=== PATIENT | female | born 1985 | race Caucasian/White ===

== ENCOUNTER 2016-11-09 03:44 | Emergency (ER) | payer BC ==
--- NOTE | 2016-11-09 07:04 | ED ORDER SUMMARY ---
..... Patient: GRAHAM ANDERSEN OrderSheet [facility] VisitID: [id number] [address] [place] [address] 30y, F Registration Date/Time: 11/09/2016 ORDER SHEET Weight: 117.4 kg (stated) Allergies: Amoxicillin GENERAL ORDERS: Serum Quantitative Urgent (03:56 11/09/2016 PHutchinson DO) (Ack 4:09 HSoule) (4:49 RCollier R.N.) CBC w Diff Urgent (03:57 11/09/2016 PHutchinson DO) (Ack 4:09 HSoule) (4:49 RCollier R.N.) CMP Urgent (03:57 11/09/2016 PHutchinson DO) (Ack 4:09 HSoule) (4:49 RCollier R.N.) UA-Culture if indicated Urgent (03:57 11/09/2016 PHutchinson DO) (Ack 4:13 CHategekimana) (5:03 HSoule) PT with INR Urgent (03:57 11/09/2016 PHutchinson DO) (Ack 4:09 HSoule) (4:49 RCollier R.N.) CT Abd/Pel w Cont (Yes) (BUN and Cr normal) (recent ectopic pregnnancy -- BHCG now 5) Urgent (04:39 11/09/2016 PHutchinson DO) (Ack 4:46 CHategekimana) (4:58 PHutchinson DO) (Cancelled: Other4:58 PHutchinson DO) US Pelvic Complete w Transvag (recent ectopic preg) Urgent (04:59 11/09/2016 PHutchinson DO) (Ack 5:05 LMuller) (6:55 RCollier R.N.) Type & Rh Urgent (05:17 11/09/2016 PHutchinson DO) (Ack 5:19 CHategekimana) (5:43 HSoule) MEDICATION ORDERS: IV FLUIDS: IV NS : initial bolus 1000 mL (1000 mL/hr), then 500 mL/hr for X2 (NOW) (03:56 11/09/2016 PHutchinson DO) (Ack 3:58 HSoule) (4:09 HSoule) Zofran IV 4 mg (NOW) (03:57 11/09/2016 Courtney VÁZQUEZ) (Ack 3:58 HSoule) (4:09 HSoule) ORDER SHEET NOTES: [Electronically signed by Jenifer George (07:11 11/09/2016)] [Electronically signed by Didier Sprague DO (09:14 11/09/2016)] [Electronically locked/signed by Jenifer George (07:11 11/09/2016)]
--- NOTE | 2016-11-09 07:04 | ED CLINICAL REPORT ---
Clinical Report - Physicians/Mid Levels [facility] [address] [place] [address] 11/09/2016 3:45 Patient: GRAHAM ANDERSEN Time Seen: 03:53. Arrived- By private vehicle. Historian- patient and family. HISTORY OF PRESENT ILLNESS Chief Complaint: PELVIC PAIN. This started today first noted about 1 week ago, but worsened tonight and still present. It was gradual in onset and has been waxing/waning. The symptoms are described as moderate. Modifying factors- worsened by movement. Relieved by rest. The patient has had left-sided pelvic pain and abnormal bleeding. No vaginal discharge, pain with urination, urinary frequency or urgency of urination. Last normal menstrual period- Aug 2016. Does not use control measures. (Patient was seen here for ectopic on the and given methotrexate. Patient went to follow up appointment with Dr. Mccord and was told she should be fine. She states that she is having pain that started tonight and some bleeding). Currently : recent ectopic preg - post methotrexate. Similar symptoms previously: Recent medical care: The patient was seen recently at this facility in the emergency department. Diagnosis: ectopic . REVIEW OF SYSTEMS No vomiting, diarrhea, fever, sore throat or difficulty breathing. No skin rash. All systems otherwise negative, except as recorded above. 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 SURGERIES: Eye surgery . Leap procedure). Type II diabetes mellitus treated with oral med. Medications: Hydrocodone-Acetaminophen Oral. MetFORMIN HCl Oral (Tablet 1000 mg) 1 tablet, 2x a day. Allergies: Amoxicillin. SOCIAL HISTORY Former smoker. Occasional alcohol use. No drug use. Is a local resident. ADDITIONAL NOTES The nursing notes have been reviewed. PHYSICAL EXAM Vital Signs: 11/09/2016 03:52 BP: 144/91. HR: 79. RR: 18. O2 saturation: 99%. Temp: 97.9 F. Pain level now: 3/10. Appearance: Alert. Oriented X3. Patient in mild distress. HEENT: Normal external inspection. Eyes: No scleral icterus or pale conjunctivae. ENT: No hearing deficit. Neck: Neck supple. CVS: Heart sounds normal. Respiratory: No respiratory distress. Breath sounds normal. Abdomen: Soft. Mild tenderness in the left lower quadrant. No mass. No rebound tenderness or guarding. Back: Normal external inspection. Skin: Skin warm and dry. Normal skin color. No rash. Normal skin turgor. Extremities: Extremities nontender. No lower extremity edema. Neuro: Oriented X 3. No motor deficit. LABS, X-RAYS, AND EKG Pelvic Sonogram: Left adnexal mass; no free fluid. The study was independently viewed by me, interpreted by the radiologist and discussed with the radiologist. A comparison with prior studies reveals that the findings are improved (fluid is now decreased; mass is similar in appearance). Laboratory Tests: UA-Culture if indicated: (XENIA: 11/09/2016 04:55) ( MsgRcvd 11/09/2016 05:10) Final results Test Result Flag Units (Reference) URINE COLOR YELLOW URINE APPEARANCE SLIGHTLY HAZY URINE GLUCOSE NEGATIVE (NEGATIVE) URINE BILIRUBIN NEGATIVE (NEGATIVE) URINE KETONE NEGATIVE (NEGATIVE) URINE SPECIFIC GRAVITY >= 1.030 (1.010-1.030) URINE PH 5.5 (5.0-8.0) URINE PROTEIN NEGATIVE (NEGATIVE) URINE UROBILINOGEN 0.2 EU/dL (0.2-1.0) URINE NITRITE NEGATIVE (NEGATIVE) URINE BLOOD 3+ (NEGATIVE) URINE LEUK ESTERASE NEGATIVE (NEGATIVE) URINE RBC 1-3 rbc/hpf (0-1) URINE WBC 0-1 wbc/hpf (0-1) URINE EPITHELIAL CELLS 1-3 EPI/hpf (0-5) URINE BACTERIA TRACE (<1+) (NONE SEEN) URINE COMMENT CULT NOT INDICATED CALCIUM OXALATE CRYSTALS: 15-25/HPFURINE CULTURES ARE SET-UP BASED ON THE FOLLOWING CRITERIA:POSITIVE NITRITEPOSITIVE LEUKOCYTE ESTERASEGREATER THAN 10 WHITE BLOOD CELLSMODERATE (2+) OR GREATER BACTERIA CBC w Diff: (XENIA: 11/09/2016 04:00) ( MsgRcvd 11/09/2016 04:16) Final results Test Result Flag Units (Reference) WHITE BLOOD COUNT 13.3 H K/uL (4.5-11.5) RED BLOOD COUNT 4.72 M/uL (4.00-5.20) HEMOGLOBIN 14.3 gm/dL (12.0-16.0) HEMATOCRIT 43.2 % (36.0-46.0) MEAN CELL VOLUME 91 fL (80-100) MEAN CORPUSCULAR HGB 30 pg (26-34) MEAN CORPUSCULAR HGB CONC 33 g/dL (31-37) RED CELL DISTRIBUTION WIDTH 13.3 % (11.6-14.8) PLATELET COUNT 258 K/uL (150-400) NEUTROPHIL % 67.1 % (50-75) LYMPH % 26.6 % (25-40) MONO % 5.6 % (3-14) EOSINOPHIL % 0.5 % (0-4) BASOPHIL % 0.2 % (0-2) PT with INR: (XENIA: 11/09/2016 04:00) ( MsgRcvd 11/09/2016 04:19) Final results Test Result Flag Units (Reference) INR 1.0 (0.8-1.2) Low Intensity Therapy: INR 1.5-2.0 PT range 18.5-23.1Mod.Intensity Therapy: INR 2.0-3.0 PT range 23.1-31.5High Intensity Therapy: INR 2.5-3.5 PT range 27.4-35.5High Intensity Therapy 2: INR 3.0-4.0 PT range 31.5-39.3 CMP: (XENIA: 11/09/2016 04:00) ( MsgRcvd 11/09/2016 04:38) Final results Test Result Flag Units (Reference) GLUCOSE 114 H mg/dL (70-110) BUN 8 mg/dL (7-18) CREATININE 0.7 mg/dL (0.6-1.3) Estimated GFR >60 mL/min Estimated GFR- >60 mL/min Note: Persistent reduction over 3 months in eGFR<60 mL/min/1.73 m2 defines CKD. Patients with eGFR values>=60 mL/min/1.73 m2 may also have CKD if evidence ofpersistent proteinuria. Additional information may be foundat [email or web address].org. SODIUM 142 mmol/L (136-145) POTASSIUM 3.4 L mmol/L (3.5-5.1) CHLORIDE 105 mmol/L (98-107) CARBON DIOXIDE 25 mmol/L (21-32) CALCIUM 9.4 mg/dL (8.5-10.1) TOTAL PROTEIN 7.7 g/dL (6.4-8.2) ALBUMIN 3.8 g/dL (3.3-5.0) BILIRUBIN, TOTAL 0.4 mg/dL (0.0-1.0) ALKALINE PHOSPHATASE 86 U/L (46-116) AST (SGOT) 17 U/L (15-37) ALT (SGPT) 28 U/L (12-78) BETA HCG, QUANTITATIVE 5 mIU/mL REFERENCE RANGE:Adult Males: <2 mIU/mLNon- Females: <6 mIU/mL Females:Approximate Approximate hCGGestational Age Range (mIU/mL) 0-1 week 0-501-2 weeks 40-3002-3 weeks 100-57930-2 weeks 500-55621-4 months 5,000-200,0002-3 months 10,000-100,0002nd trimester 3,000-50,0003rd trimester 1,000-50,000 Type & Rh: (XENIA: 11/09/2016 04:00) ( MsgRcvd 11/09/2016 05:42) Final results Test Result Flag Units (Reference) PATIENT BLOOD TYPE O Positive . Pulse Oximetry: 11/09/2016 03:52 O2 saturation: 99%. (FIO2 - room air). Interpretation: normal. PROGRESS AND PROCEDURES Course of Care: Normal Saline 1 liter IVPB given. Zofran 4 mg IVP given. Likely resolving ectopic vs corpus leuteum cyst. BHCG now in the negative range of 5. Dr. Mccord will follow pt closely. Discussed case with health care provider (Flex call returned 08:00). Reviewed test results. Agreed upon treatment plan. Health care provider will see patient in office. Patient/family counseled. Old ED records reviewed. Disposition: Discharged. Condition: stable and improved. CLINICAL IMPRESSION Metrorrhagia. Chronic, well controlled type 2 diabetes. No hypoglycemia, hyperglycemia or coma. Morbid obesity (BMI >=40) due to excess calories. Recent ectopic with quantitative Beta HCG now 5 mIU/mL. INSTRUCTIONS Do not work for two days. Drink plenty of fluids. Warnings: Further evaluation is necessary. It is very important to follow up with a physician. GENERAL WARNINGS: Return or contact your physician immediately if your condition worsens or changes unexpectedly, if not improving as expected, or if other problems arise. Your Current Medications: CONTINUE TAKING THE FOLLOWING MEDICATIONS: Hydrocodone-Acetaminophen Oral. MetFORMIN HCl Oral : Tablet 1000 mg, 1 tablet 2x a day. OTC Medications: Take acetaminophen (Tylenol, Datril, etc.) according to label instructions. Available over the counter. Motrin (available over the counter): take according to label instructions. Follow-up: Follow up with your doctor tomorrow. Follow-up with: Luis Felipe Mccord MD, Obstetrics/Gynecology, , [facility], [address] [place] [address], [facility] Follow up tomorrow. (Electronically signed by Didier Sprague DO 11/09/2016 9:14)
--- NOTE | 2016-11-09 07:04 | ED NURSING NOTES ---
Clinical Report - Nurses [facility] [place] [address] 11/09/2016 3:45 Patient: [facility]HAM [facility]ERSEN [id number] TRIAGE Triage time 03:52 Nov 09 2016. Acuity: LEVEL 3. Chief Complaint: ABDOMINAL PAIN and VAGINAL BLEEDING and (Left Lower Quadrant). SEPSIS SCREEN: Sepsis Screen: negative. Negative (no infection suspected/documented). ADAM COMA SCORE: Adam Coma Scale: 15- eyes open spontaneously (4); best verbal response- oriented x 4 (5); best motor response- obeys commands (6). --03:56 Jenifer George 03:52 11/09/16. BP: 144/91. HR: 79. RR: 18. O2 saturation: 99% on room air. Temp: 97.9 F (oral). Pain level now: 01/14. --03:56 Jenifer George. Weight: 117.4 kg stated. Height/Length: 67 inches Per Patient. BMI: 40.6. --03:54 Jenifer George. Medications MetFORMIN HCl Oral (Tablet 1000 mg) 1 tablet, 2x a day. --03:54 Jenifer George Hydrocodone-Acetaminophen Oral. --03:54 Jenifer George. Medication/allergy information source: the patient. --03:56 Jenifer George. Allergies Amoxicillin. --03:54 Jenifer George. History Arrived by private vehicle. Historian: patient. Accompanied by family. Primary physician (Looking for new doctor). This started just prior to arrival. ( Patient was seen here for ectopic on the . Patient went to follow up appointment with Dr. Mccord and was told she should be fine. She states that she is having pain that started tonight and some bleeding.). 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 PAST MEDICAL HX: Diabetes mellitus. Immunizations: up-to-date. Last normal menstrual period- Aug. SOCIAL HX: Smoker- current status unknown. No alcohol use or drug use. ABUSE ASSESSMENT: No report of abuse. FALL RISK ASSESSMENT: Fall risk assessment completed. No fall risk identified. NUTRITIONAL RISK ASSESSMENT: The nutritional risk assessment revealed no deficiencies. FUNCTIONAL ASSESSMENT: Functional assessment: no impairments noted. LEARNING NEEDS ASSESSMENT: The learning needs assessment revealed no barriers. SKIN INTEGRITY ASSESSMENT: Skin integrity risk assessment completed. No skin integrity risk identified. --03:56 Jenifer George. PROBLEMS: Ectopic . . --03:55 Jenifer George. ADDITIONAL SURGERIES: . Eye surgery . Leap procedure . --03:55 Jenifer George. Interventions ID band on patient. To treatment room. --03:56 Jenifer George. PHYSICAL ASSESSMENT Ambulatory to room. Patient gowned. GENERAL / NEURO / PSYCH: Alert. Oriented X 4. Appears in no acute distress. HEENT: Mucous membranes are pink. RESPIRATORY: Respirations not labored. CVS: Normal heart rate and rhythm. GI / : Abdomen soft. Abdominal tenderness in the left lower quadrant. SKIN: Skin is warm and dry. --03:57 Jenifer George. NURSING PROGRESS NOTES Pulse oximeter and NIBP monitor placed on patient; monitor alarms on. Patient gowned. Warming measures: blanket applied. Reassurance given to the patient. Two patient identifiers checked. Call light placed in reach. Side rails up x 1. Bed placed in lowest position. Brakes of bed on. Patient ready for evaluation- chart flagged and ED physician notified. --03:57 Jenifer George 03:58 11/09/2016 Site #1 started via IV in the left antecubital space with an 20g angiocath, with aseptic technique and good blood return; one attempt. Blood drawn: rainbow set. Labeled in the presence of the patient and sent to the lab. Saline lock flushed with 10 mL saline. --03:58 Jenifer George 04:09 11/09/2016 Started bag #1 1000 mL IV Fluids IV NS (Saline); at 1000 mL/hr over 1 hour(s) via site #1. Allergies verified and confirmed 5 rights. IV patency established. IV site checked: no pain, redness, or swelling. IV flushed thoroughly pre- and post-medication administration. --04:09 Jenifer George 04:09 11/09/2016 Zofran (Ondansetron HCl) IVP 4 mg given over 1 minute(s) via site #1. Allergies verified and confirmed 5 rights. IV patency established. IV site checked: no pain, redness, or swelling. IV flushed thoroughly pre- and post-medication administration. IVP given by RN. --04:09 Jenifer George The patient is resting quietly. --05:06 Jenifer George 05:05 11/09/16. BP: 120/75. HR: 60. RR: 20. O2 saturation: 96% on room air. Pain level now: 01/14. --05:06 Jenifer George 04:20 11/09/16. ( Patient given blanket and lights dimmed). --05:07 Jenifer George ( Ultrasound at bedside). --05:42 Jenifer George 05:10 11/09/2016 IV Fluids IV NS Discontinued: bag #1 completed. Total amount infused: 1000 mL. IV patency established. IV site checked: no pain, redness, or swelling. IV flushed thoroughly. --06:17 Jenifer George ( 15 min stand by assist for transvaginal US exam.). --06:55 Kaye Novak, REvi DISPOSITION / DISCHARGE 06:56 11/09/16. BP: 131/80. HR: 68. RR: 20. O2 saturation: 99% on room air. Pain level now: 12/17. --06:57 Jenifer George Condition at departure: improved and stable. No learning barriers present. Discharge instructions provided and reviewed with the patient and spouse. Work note given (No work for two days). Patient and spouse verbalized understanding. Written instructions provided in Burmese. The patient was discharged by the physician. She was discharged home and accompanied by spouse. She left the Emergency Department ambulatory and via private vehicle. Spouse driving. --07:10 Jenifer George 07:05 11/09/2016 Site #1 removed upon discharge. Catheter intact. Bandaid applied. --07:10 Jenifer George ( Follow up with Dr. Mccord tomorrow. Return if symptoms worsen.). --07:10 Jenifer George. Locked/Released at 11/09/2016 7:11 by Jenifer George,
--- NOTE | 2016-11-09 07:04 | ED ORDER SUMMARY ---
..... Patient: GRAHAM ANDERSEN OrderSheet [facility] VisitID: [id number] [address] [place] [address] 30y, F Registration Date/Time: 11/09/2016 ORDER SHEET Weight: 117.4 kg (stated) Allergies: Amoxicillin GENERAL ORDERS: Serum Quantitative Urgent (03:56 11/09/2016 PHutchinson DO) (Ack 4:09 HSoule) (4:49 RCollier R.N.) CBC w Diff Urgent (03:57 11/09/2016 PHutchinson DO) (Ack 4:09 HSoule) (4:49 RCollier R.N.) CMP Urgent (03:57 11/09/2016 PHutchinson DO) (Ack 4:09 HSoule) (4:49 RCollier R.N.) UA-Culture if indicated Urgent (03:57 11/09/2016 PHutchinson DO) (Ack 4:13 CHategekimana) (5:03 HSoule) PT with INR Urgent (03:57 11/09/2016 PHutchinson DO) (Ack 4:09 HSoule) (4:49 RCollier R.N.) CT Abd/Pel w Cont (Yes) (BUN and Cr normal) (recent ectopic pregnnancy -- BHCG now 5) Urgent (04:39 11/09/2016 PHutchinson DO) (Ack 4:46 CHategekimana) (4:58 PHutchinson DO) (Cancelled: Other4:58 PHutchinson DO) US Pelvic Complete w Transvag (recent ectopic preg) Urgent (04:59 11/09/2016 PHutchinson DO) (Ack 5:05 LMuller) (6:55 RCollier R.N.) Type & Rh Urgent (05:17 11/09/2016 PHutchinson DO) (Ack 5:19 CHategekimana) (5:43 HSoule) MEDICATION ORDERS: IV FLUIDS: IV NS : initial bolus 1000 mL (1000 mL/hr), then 500 mL/hr for X2 (NOW) (03:56 11/09/2016 PHutchinson DO) (Ack 3:58 HSoule) (4:09 HSoule) Zofran IV 4 mg (NOW) (03:57 11/09/2016 Courtney VÁZQUEZ) (Ack 3:58 HSoule) (4:09 HSoule) ORDER SHEET NOTES: [Electronically signed by Jenifer George (07:11 11/09/2016)] [Electronically signed by Didier Sprague DO (09:14 11/09/2016)] [Electronically locked/signed by Jenifer George (07:11 11/09/2016)]
--- NOTE | 2016-11-09 07:04 | ED CLINICAL REPORT ---
Clinical Report - Physicians/Mid Levels [facility] [address] [place] [address] 11/09/2016 3:45 Patient: GRAHAM ANDERSEN Time Seen: 03:53. Arrived- By private vehicle. Historian- patient and family. HISTORY OF PRESENT ILLNESS Chief Complaint: PELVIC PAIN. This started today first noted about 1 week ago, but worsened tonight and still present. It was gradual in onset and has been waxing/waning. The symptoms are described as moderate. Modifying factors- worsened by movement. Relieved by rest. The patient has had left-sided pelvic pain and abnormal bleeding. No vaginal discharge, pain with urination, urinary frequency or urgency of urination. Last normal menstrual period- Aug 2016. Does not use control measures. (Patient was seen here for ectopic on the and given methotrexate. Patient went to follow up appointment with Dr. Mccord and was told she should be fine. She states that she is having pain that started tonight and some bleeding). Currently : recent ectopic preg - post methotrexate. Similar symptoms previously: Recent medical care: The patient was seen recently at this facility in the emergency department. Diagnosis: ectopic . REVIEW OF SYSTEMS No vomiting, diarrhea, fever, sore throat or difficulty breathing. No skin rash. All systems otherwise negative, except as recorded above. 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 SURGERIES: Eye surgery . Leap procedure). Type II diabetes mellitus treated with oral med. Medications: Hydrocodone-Acetaminophen Oral. MetFORMIN HCl Oral (Tablet 1000 mg) 1 tablet, 2x a day. Allergies: Amoxicillin. SOCIAL HISTORY Former smoker. Occasional alcohol use. No drug use. Is a local resident. ADDITIONAL NOTES The nursing notes have been reviewed. PHYSICAL EXAM Vital Signs: 11/09/2016 03:52 BP: 144/91. HR: 79. RR: 18. O2 saturation: 99%. Temp: 97.9 F. Pain level now: 3/10. Appearance: Alert. Oriented X3. Patient in mild distress. HEENT: Normal external inspection. Eyes: No scleral icterus or pale conjunctivae. ENT: No hearing deficit. Neck: Neck supple. CVS: Heart sounds normal. Respiratory: No respiratory distress. Breath sounds normal. Abdomen: Soft. Mild tenderness in the left lower quadrant. No mass. No rebound tenderness or guarding. Back: Normal external inspection. Skin: Skin warm and dry. Normal skin color. No rash. Normal skin turgor. Extremities: Extremities nontender. No lower extremity edema. Neuro: Oriented X 3. No motor deficit. LABS, X-RAYS, AND EKG Pelvic Sonogram: Left adnexal mass; no free fluid. The study was independently viewed by me, interpreted by the radiologist and discussed with the radiologist. A comparison with prior studies reveals that the findings are improved (fluid is now decreased; mass is similar in appearance). Laboratory Tests: UA-Culture if indicated: (XENIA: 11/09/2016 04:55) ( MsgRcvd 11/09/2016 05:10) Final results Test Result Flag Units (Reference) URINE COLOR YELLOW URINE APPEARANCE SLIGHTLY HAZY URINE GLUCOSE NEGATIVE (NEGATIVE) URINE BILIRUBIN NEGATIVE (NEGATIVE) URINE KETONE NEGATIVE (NEGATIVE) URINE SPECIFIC GRAVITY >= 1.030 (1.010-1.030) URINE PH 5.5 (5.0-8.0) URINE PROTEIN NEGATIVE (NEGATIVE) URINE UROBILINOGEN 0.2 EU/dL (0.2-1.0) URINE NITRITE NEGATIVE (NEGATIVE) URINE BLOOD 3+ (NEGATIVE) URINE LEUK ESTERASE NEGATIVE (NEGATIVE) URINE RBC 1-3 rbc/hpf (0-1) URINE WBC 0-1 wbc/hpf (0-1) URINE EPITHELIAL CELLS 1-3 EPI/hpf (0-5) URINE BACTERIA TRACE (<1+) (NONE SEEN) URINE COMMENT CULT NOT INDICATED CALCIUM OXALATE CRYSTALS: 15-25/HPFURINE CULTURES ARE SET-UP BASED ON THE FOLLOWING CRITERIA:POSITIVE NITRITEPOSITIVE LEUKOCYTE ESTERASEGREATER THAN 10 WHITE BLOOD CELLSMODERATE (2+) OR GREATER BACTERIA CBC w Diff: (XENIA: 11/09/2016 04:00) ( MsgRcvd 11/09/2016 04:16) Final results Test Result Flag Units (Reference) WHITE BLOOD COUNT 13.3 H K/uL (4.5-11.5) RED BLOOD COUNT 4.72 M/uL (4.00-5.20) HEMOGLOBIN 14.3 gm/dL (12.0-16.0) HEMATOCRIT 43.2 % (36.0-46.0) MEAN CELL VOLUME 91 fL (80-100) MEAN CORPUSCULAR HGB 30 pg (26-34) MEAN CORPUSCULAR HGB CONC 33 g/dL (31-37) RED CELL DISTRIBUTION WIDTH 13.3 % (11.6-14.8) PLATELET COUNT 258 K/uL (150-400) NEUTROPHIL % 67.1 % (50-75) LYMPH % 26.6 % (25-40) MONO % 5.6 % (3-14) EOSINOPHIL % 0.5 % (0-4) BASOPHIL % 0.2 % (0-2) PT with INR: (XENIA: 11/09/2016 04:00) ( MsgRcvd 11/09/2016 04:19) Final results Test Result Flag Units (Reference) INR 1.0 (0.8-1.2) Low Intensity Therapy: INR 1.5-2.0 PT range 18.5-23.1Mod.Intensity Therapy: INR 2.0-3.0 PT range 23.1-31.5High Intensity Therapy: INR 2.5-3.5 PT range 27.4-35.5High Intensity Therapy 2: INR 3.0-4.0 PT range 31.5-39.3 CMP: (XENIA: 11/09/2016 04:00) ( MsgRcvd 11/09/2016 04:38) Final results Test Result Flag Units (Reference) GLUCOSE 114 H mg/dL (70-110) BUN 8 mg/dL (7-18) CREATININE 0.7 mg/dL (0.6-1.3) Estimated GFR >60 mL/min Estimated GFR- >60 mL/min Note: Persistent reduction over 3 months in eGFR<60 mL/min/1.73 m2 defines CKD. Patients with eGFR values>=60 mL/min/1.73 m2 may also have CKD if evidence ofpersistent proteinuria. Additional information may be foundat www.kidney.org. SODIUM 142 mmol/L (136-145) POTASSIUM 3.4 L mmol/L (3.5-5.1) CHLORIDE 105 mmol/L (98-107) CARBON DIOXIDE 25 mmol/L (21-32) CALCIUM 9.4 mg/dL (8.5-10.1) TOTAL PROTEIN 7.7 g/dL (6.4-8.2) ALBUMIN 3.8 g/dL (3.3-5.0) BILIRUBIN, TOTAL 0.4 mg/dL (0.0-1.0) ALKALINE PHOSPHATASE 86 U/L (46-116) AST (SGOT) 17 U/L (15-37) ALT (SGPT) 28 U/L (12-78) BETA HCG, QUANTITATIVE 5 mIU/mL REFERENCE RANGE:Adult Males: <2 mIU/mLNon- Females: <6 mIU/mL Females:Approximate Approximate hCGGestational Age Range (mIU/mL) 0-1 week 0-501-2 weeks 40-3002-3 weeks 100-34925-5 weeks 500-20069-5 months 5,000-200,0002-3 months 10,000-100,0002nd trimester 3,000-50,0003rd trimester 1,000-50,000 Type & Rh: (XENIA: 11/09/2016 04:00) ( MsgRcvd 11/09/2016 05:42) Final results Test Result Flag Units (Reference) PATIENT BLOOD TYPE O Positive . Pulse Oximetry: 11/09/2016 03:52 O2 saturation: 99%. (FIO2 - room air). Interpretation: normal. PROGRESS AND PROCEDURES Course of Care: Normal Saline 1 liter IVPB given. Zofran 4 mg IVP given. Likely resolving ectopic vs corpus leuteum cyst. BHCG now in the negative range of 5. Dr. Mccord will follow pt closely. Discussed case with health care provider (Flex call returned 08:00). Reviewed test results. Agreed upon treatment plan. Health care provider will see patient in office. Patient/family counseled. Old ED records reviewed. Disposition: Discharged. Condition: stable and improved. CLINICAL IMPRESSION Metrorrhagia. Chronic, well controlled type 2 diabetes. No hypoglycemia, hyperglycemia or coma. Morbid obesity (BMI >=40) due to excess calories. Recent ectopic with quantitative Beta HCG now 5 mIU/mL. INSTRUCTIONS Do not work for two days. Drink plenty of fluids. Warnings: Further evaluation is necessary. It is very important to follow up with a physician. GENERAL WARNINGS: Return or contact your physician immediately if your condition worsens or changes unexpectedly, if not improving as expected, or if other problems arise. Your Current Medications: CONTINUE TAKING THE FOLLOWING MEDICATIONS: Hydrocodone-Acetaminophen Oral. MetFORMIN HCl Oral : Tablet 1000 mg, 1 tablet 2x a day. OTC Medications: Take acetaminophen (Tylenol, Datril, etc.) according to label instructions. Available over the counter. Motrin (available over the counter): take according to label instructions. Follow-up: Follow up with your doctor tomorrow. Follow-up with: Luis Felipe Mccord MD, Obstetrics/Gynecology, , [facility], [address] [place] [address], [facility] Follow up tomorrow. (Electronically signed by Didier Sprague DO 11/09/2016 9:14)
--- NOTE | 2016-11-09 09:14 | ED MED RECONCILIATION SUMMARY ---
Patient: GRAHAM ANDERSEN Medication Reconciliation Report [facility] VisitID: [id number] [address] [place] [address] 30y, F Registration Date/Time: 11/09/2016 Weight: 117.4 kg Height/Length: 67 in. BMI: 40.6 ALLERGIES: Amoxicillin The patient's Home Medications are listed below: CONTINUE TAKING THE FOLLOWING MEDICATIONS: Hydrocodone-Acetaminophen Oral MetFORMIN HCl Oral (1000 mg) 1 tablet, 2x a day The source(s) of the original Home Medication information: patient The following Medications were given to the patient in the Emergency Department: IV NS IV Fluids bolus 0, then 1000 mL/hr, administered: 11/09/2016 4:09:00 AM Zofran [IVP] IVP 4 mg, administered: 11/09/2016 4:09:00 AM The following Medications were prescribed to the patient: Take acetaminophen (Tylenol, Datril, etc.) according to label instructions. Available over the counter. -- Didier Sprague DO Motrin (available over the counter): take according to label instructions. -- Didier Sprague DO
--- NOTE | 2016-11-09 09:14 | ED MAR SUMMARY ---
..... Medication Administration Record [facility] [address] [place] [address] Patient: GRAHAM ANDERSEN Visit ID: [id number] 30y, F Weight: 117.4 kg Height/Length: 67 in BMI: 40.6 ALLERGIES: Amoxicillin Start 04:09 11/09/2016 Jenifer George,, Stop 05:10 11/09/2016 Jenifer George, Medication Administered: IV NS (SALINE), Dose: IV Fluids over 1 hour(s), Rate: 1000 mL/hr, Dispensed: 1000 mL bag, Site: #1 left AC. Medication Ordered: IV NS : initial bolus 1000 mL (1000 mL/hr), then 500 mL/hr for X2 (NOW). Given 04:09 11/09/2016 Jenifer George, Medication Administered: ZOFRAN [IVP] (ONDANSETRON HCL), Dose: 4 mg IVP over 1 minute(s), Site: #1 left AC. Medication Ordered: Zofran IV 4 mg (NOW).
--- NOTE | 2016-11-09 09:14 | ED DISCHARGE INSTRUCTIONS ---
Patient: GRAHAM ANDERSEN General Instructions [facility] VisitID: [id number] [place] [address] 30y, F Registration Date/Time: 11/09/2016 Metrorrhagia. Chronic, well controlled type 2 diabetes. No hypoglycemia, hyperglycemia or coma. Morbid obesity (BMI >=40) due to excess calories. Recent ectopic with quantitative Beta HCG now 5 mIU/mL. INSTRUCTIONS Do not work for two days. Drink plenty of fluids. Warnings: Further evaluation is necessary. It is very important to follow up with a physician. GENERAL WARNINGS: Return or contact your physician immediately if your condition worsens or changes unexpectedly, if not improving as expected, or if other problems arise. Your Current Medications: CONTINUE TAKING THE FOLLOWING MEDICATIONS: Hydrocodone-Acetaminophen Oral. MetFORMIN HCl Oral : Tablet 1000 mg, 1 tablet 2x a day. OTC Medications: Take acetaminophen (Tylenol, Datril, etc.) according to label instructions. Available over the counter. Motrin (available over the counter): take according to label instructions. Follow-up: Follow up with your doctor tomorrow. Follow-up with: Luis Felipe Mccord MD, Obstetrics/Gynecology, , [facility], [address] [place] [address], [facility] Follow up tomorrow. ADDITIONAL INFORMATION Painful Menstrual Periods The uterus is a muscle and contracts normally during the menstrual cycle. The contraction pushes out the build-up of tissue that occurs each month inside the uterus. If the contraction is very strong, it can cause pain because the muscle is not getting enough oxygen for the amount of work it is doing. Pain with menstruation is called dysmenorrhea. The pain may feel like a dull ache or throbbing in the lower abdomen. It may spread to your lower back or inner thighs. In severe cases there may also be nausea, vomiting, loose stools, sweating or dizziness. There are two types of dysmenorrhea: Primary Dysmenorrhea (common menstrual cramps) usually appears within one or two years after you start your periods. It usually gets better or goes away as you get older or when you have a baby. The menstrual cramps usually start just before, or on the day of your period, and last 1-3 days. Treatment is with comfort measures and anti-inflammatory drugs as described below (see Home Care). If your pain is not controlled with these measures, your doctor may prescribe control pills. This will reduce the pain of each period. Secondary Dysmenorrhea starts later in life. The pain begins earlier in the menstrual cycle and lasts longer than common menstrual cramps. It is caused by a specific problem with the pelvic organs, such as: PID (pelvic inflammatory disease) -- an infection in the fallopian tubes Fibroids benign tumors within the wall of the uterus (not cancer) Endometriosis the tissue that lines the uterus spreads outside the uterus and grows there. This tissue swells and bleeds each month, just like the tissue in your uterus, and causes pain. IUD use -- especially in the first few months after placement Once the cause of secondary dysmenorrhea is found, it can be treated. Home Care: Most women with common menstrual cramping (primary dysmenorrhea) can remain active throughout their period. Many women find that regular exercise each werek reduces menstrual pain. If cramping is severe, rest in bed with a heating pad on the lower abdomen or lower back. A hot bath or massage to the lower back and abdomen may also give relief. Smoking can make symptoms worse. If you smoke, ask your doctor for help with a stop-smoking plan. Avoid caffeine and alcohol around the time of your period since these can make symptoms worse. Anti-inflammatory medicine such as aspirin, ibuprofen (Advil, Motrin) or naproxen (Aleve, Naprosyn) can be very helpful, especially if taken at the very first signs of bleeding or cramping . Acetaminophen (Tylenol) is not as effective for this problem. [NOTE: If you have chronic liver or kidney disease or ever had a stomach ulcer or GI bleeding, talk with your doctor before using these medicines.] If your pain is not controlled by the above measures, a prescription pain medicine may be required for a short time. Discuss this with your doctor. Follow Up with your doctor as advised. If you have just started menstruating in the past 1-2 years, and your pain is mild to moderate, your symptoms are most likely not a cause for concern. However, if menstrual cramps are severe enough to interfere with your daily activities, last longer than a few days, or if you are older and just started having menstrual pain, it is important to see your doctor for further evaluation. Get Prompt Medical Attention if any of the following occur: Fever over 100.4F (38.0C) with pelvic pain Uncontrolled menstrual pain or pain that lasts longer than usual or occurs between periods Unusual vaginal discharge between periods Heavy vaginal bleeding (soaking more than one pad an hour for three hours) Passage of pink or su tissue from the vagina If you use tampons, watch for the following signs of Toxic Shock Syndrome and return at once: Fever over 102.0F (38.9C), with or without pelvic pain Vomiting, diarrhea Dizziness, weakness or fainting Rash that looks like a bad sunburn Irregular Vaginal Bleeding This is a condition in which bleeding occurs at unexpected times of the month. The bleeding may be heavier or roller cleaner than usual. Heavy bleeding may lead to anemia. If severe enough, anemia may cause you to look pale and feel weak or fatigued. You might have shortness of breath even with little exertion. The female hormones produced in your body every month may be out of balance. This imbalance leads to bleeding. Causes could include an ovarian cyst, emotional stress, pelvic infection. Failure to ovulate during your last cycle may also cause this problem. Home Care: If bleeding is heavy, rest and avoid heavy exertion. You may use acetaminophen (Tylenol) or ibuprofen (Motrin, Advil) to control pain, unless another pain medicine was prescribed. [NOTE: If you have chronic liver or kidney disease or ever had a stomach ulcer or GI bleeding, talk with your doctor before using these medicines.] Iron supplements may be prescribed for anemia. It takes about 4-6 weeks for the iron to correct the anemia. Take the medicine as directed. See your doctor for a repeat blood test after you finish the iron treatment. If hormones were prescribed to control your bleeding, take them exactly as directed. If you were prescribed a medicine called Provera (medroxyprogesterone), the bleeding should stop while you are taking it. Another period will start a few days after you finish the medicine. Follow Up with your doctor, or as advised, within the next 1-2 days if heavy bleeding continues. Otherwise, follow up within the next 1-2 weeks. Get Prompt Medical Attention if any of the following occur: Bleeding becomes heavy (soaking one pad an hour for three hours) Fever of 100.4F (38C) or higher, or as directed by your healthcare provider Increase in abdominal pain Weakness, dizziness or fainting You have been given the following additional information: Dysmenorrhea Dysfunctional Uterine Bleeding Do not work for two days. (Electronically signed by Didier Sprague DO 11/09/2016 9:14)
--- NOTE | 2016-11-09 09:14 | ED MED RECONCILIATION SUMMARY ---
Patient: GRAHAM ANDERSEN Medication Reconciliation Report [facility] VisitID: [id number] [address] [place] [address] 30y, F Registration Date/Time: 11/09/2016 Weight: 117.4 kg Height/Length: 67 in. BMI: 40.6 ALLERGIES: Amoxicillin The patient's Home Medications are listed below: CONTINUE TAKING THE FOLLOWING MEDICATIONS: Hydrocodone-Acetaminophen Oral MetFORMIN HCl Oral (1000 mg) 1 tablet, 2x a day The source(s) of the original Home Medication information: patient The following Medications were given to the patient in the Emergency Department: IV NS IV Fluids bolus 0, then 1000 mL/hr, administered: 11/09/2016 4:09:00 AM Zofran [IVP] IVP 4 mg, administered: 11/09/2016 4:09:00 AM The following Medications were prescribed to the patient: Take acetaminophen (Tylenol, Datril, etc.) according to label instructions. Available over the counter. -- Didier Sprague DO Motrin (available over the counter): take according to label instructions. -- Didier Sprague DO
--- NOTE | 2016-11-09 09:14 | ED MAR SUMMARY ---
..... Medication Administration Record [facility] [address] [place] [address] Patient: GRAHAM ANDERSEN Visit ID: [id number] 30y, F Weight: 117.4 kg Height/Length: 67 in BMI: 40.6 ALLERGIES: Amoxicillin Start 04:09 11/09/2016 Jenifer George,, Stop 05:10 11/09/2016 Jenifer George, Medication Administered: IV NS (SALINE), Dose: IV Fluids over 1 hour(s), Rate: 1000 mL/hr, Dispensed: 1000 mL bag, Site: #1 left AC. Medication Ordered: IV NS : initial bolus 1000 mL (1000 mL/hr), then 500 mL/hr for X2 (NOW). Given 04:09 11/09/2016 Jenifer George, Medication Administered: ZOFRAN [IVP] (ONDANSETRON HCL), Dose: 4 mg IVP over 1 minute(s), Site: #1 left AC. Medication Ordered: Zofran IV 4 mg (NOW).
--- NOTE | 2016-11-09 15:51 | DIAGNOSTIC IMAGING REPORT ---
PROCEDURE: US COMPLETE PELVIC W/TRANSVAG INDICATION: Bleeding. Left pelvic pain. Trace hCG level (5 units - - within normal range). Recently treated for presumed ectopic . TECHNIQUE: Transabdominal and endovaginal su scale and color Doppler sonographic images of the female pelvis were obtained. 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 COMPARISON: Comparison is made to obstetric ultrasound 10/31/2016. FINDINGS: TRANSABDOMINAL SCANS: Uterus is of normal size (8.5 x 2.8 x 4.0 cm). Kidneys are normal. TRANSVAGINAL SCANS: Endometrial thickness is normal (10 mm). There is a persistent 5 mm submucosal cyst. There is persistent moderate enlargement the left adnexal region now measuring 6.1 x 4.3 cm (previously 5.5 cm) with a heterogeneous appearance and mild increased vascularity. Right ovary is normal (2.9 cm). Small amount of free fluid. IMPRESSION: 1. There is mild increase in a moderately enlarged left adnexal mass, now measuring 6.1 cm (previously 5.5 cm), with small amount of free fluid in the pelvis. While the patient is hCG level continues to decline, one might consider the possibility a persistent or resolving ectopic . An underlying ovarian mass/neoplasm (benign most likely, malignant less likely) might also be considered. 2. There is a persistent 5 mm submucosal cyst of the endometrium which may represent incidental finding (does not have the appearance of a true gestational sac). 3. Findings discussed with Dr. Sprague and called to Dr. Luis Felipe Mccord..
== END 2016-11-09 07:10 | disposition home or self-care (01) ==
LOC: ED SRH 03:44
DX: N92.1 Excessive and frequent menstruation with irregular cycle (principal); E11.9 Type 2 diabetes mellitus without complications; Z79.4 Long term (current) use of insulin; E66.01 Morbid (severe) obesity due to excess calories; Z68.41 Body mass index [BMI] 40.0-44.9, adult; Z88.0 Allergy status to penicillin; Z87.891 Personal history of nicotine dependence
CPT/HCPCS: 90001; 90004; 90100; 90155; 90197; 94060; 95059

== ENCOUNTER 2016-11-11 11:39 | Emergency (ER) | payer BC ==
--- NOTE | 2016-11-11 14:23 | ED NURSING NOTES ---
Clinical Report - [facility] [place] [address] 11/11/2016 11:41 Patient: GRAHAM ANDERSEN TRIAGE Triage time 11:51. Acuity: LEVEL 3. Chief Complaint: ABDOMINAL PAIN and (LLQ). --11:58 Lorraine Aceves R.N. 11:51 11/11/16. BP: 142/99. HR: 96. RR: 18. O2 saturation: 100%. Temp: 97.8 F. Pain level now: 05/16. --11:58 Lorraine Aceves R.N. Weight: 115.6 kg stated. Height/Length: 67 inches. BMI: 40. --11:57 Lorraine Aceves R.N. Medications metformin 1000- mg bid. --11:57 Lorraine Aceves R.N. Allergies Amoxicillin. --11:57 Lorraine Aceves R.N. History Arrived by private vehicle. Historian: patient and family. Accompanied by family. Primary physician (Dr. Mccord, [employer]). ( Dx with ectopic and given methotrexate on 10/31. Subsequently the pt. had a small amount of bleeding. She was seen by Dr. Mccord in . She was seen in this ER on 11/09/2014 for increasing pain and had an ultrasound. Pt. reports pain had subsided, then upon awakening this morning she had dark-red bleeding and a return of the LLQ pain. She called Dr. Mccord's office, who advised her she could wait until this afternoon to be seen in clinic or present to the ER.). She has had abdominal pain. PAST MEDICAL HX: ( PCOS). SOCIAL HX: Former smoker. No alcohol use or drug use. FALL RISK ASSESSMENT: Fall risk assessment completed. No fall risk identified. NUTRITIONAL RISK ASSESSMENT: The nutritional risk assessment revealed no deficiencies. FUNCTIONAL ASSESSMENT: Functional assessment: no impairments noted. LEARNING NEEDS ASSESSMENT: The learning needs assessment revealed no barriers. SKIN INTEGRITY ASSESSMENT: Skin integrity risk assessment completed. No skin integrity risk identified. --11:58 Lorraine Aceves R.N. Interventions ID band on patient. --11:58 Lorraine Aceves R.N. NURSING PROGRESS NOTES 12:53 11/11/2016 Site #1 started via IV in the right hand with an 20g angiocath; one attempt. Blood drawn: rainbow set. Labeled in the presence of the patient and sent to the lab. Saline lock flushed with 10 mL saline. --12:58 Carline Pro R.N. 12:53 11/11/2016 Started bag #1 1000 mL IV Fluids IV NS (Saline); bolus of 1000 mL over 1 hour(s) via site #1 via dial-a-flow. Allergies verified and confirmed 5 rights. IV patency established. IV site checked: no pain, redness, or swelling. IV flushed thoroughly pre- and post-medication administration. --12:58 Carline Pro R.N. 13:04 11/11/2016 Dilaudid (HYDROmorphone HCl PF) IVP 1 mg given over 2 minute(s) via site #1. Allergies verified, confirmed 5 rights and sedative warning given to the patient. IV patency established. IV site checked: no pain, redness, or swelling. IV flushed thoroughly pre- and post-medication administration. IVP given by RN (Pt. placed on continuous O2 monitor.). --13:05 Lorraine Aceves R.N. Patient ID band checked for patient name, birthdate and medical record number: patient confirmed. Blood samples drawn from the right hand peripheral IV site by nurse per protocol ; labeled in presence of the patient and sent to lab: rainbow set. Line flushed with post blood draw. Reassurance given. The patient is calm. Overall patient status is the same- she states feels the same. GI / : The patient reports abdominal pain. Denies nausea, diarrhea or vomiting. SKIN: Skin is warm. Skin color within normal limits. Two patient identifiers checked. Call light placed in reach. Side rails up x 1. Bed placed in lowest position. Brakes of bed on. Brakes of chair on. --13:10 Carline Pro R.N. 13:00 11/11/16. BP: 127/67 (regular adult cuff) taken on the left arm, via an automated monitor, while lying. HR: 77. RR: 18. O2 saturation: 96% on room air. Pain level now: 05/16. --13:10 Carline Por R.N. 13:24 11/11/16. BP: 107/69. HR: 62. O2 saturation: 95%. --13:24 Lorraine Aceves R.N. ( Report given to MADDIE Lugo for lunch coverage.). --13:37 Lorraine Aceves R.N. DISPOSITION / DISCHARGE Condition at departure: improved. The goals identified in the patient's plan of care were met. No learning barriers present. Discharge instructions provided and reviewed with the patient. Reviewed medication(s) side effects, precautions, dosing and course information. Prescription(s) given to the patient. Treatments reviewed (drive straight to Dr. Mccord's office for follow up appointment at 2:30pm). Reviewed referral to an tennis coach. Patient verbalized understanding. Written instructions provided in Khmer. The patient was discharged home and accompanied by spouse. She left the Emergency Department ambulatory and via private vehicle. Spouse driving. FALL RISK ASSESSMENT: Fall risk assessment completed. No fall risk identified. --14:35 Wlil Graham R.N. 14:34 11/11/16. BP: 117/58. HR: 85. RR: 16. O2 saturation: 100%. Temp: 98.2 F. Pain level now: 06/16. --14:35 Will Graham R.N. Departure time: 1430 PM. --14:35 Will Graham R.N. Locked/Released at 11/26/2016 15:15 by Barbara Christianson R.N.
--- NOTE | 2016-11-11 14:23 | ED ORDER SUMMARY ---
..... Patient: GRAHAM ANDERSEN OrderSheet [facility] VisitID: [id number] [place] [address] 30y, F Registration Date/Time: 11/11/2016 ORDER SHEET Weight: 115.6 kg (stated) Allergies: Amoxicillin GENERAL ORDERS: CBC w Diff Urgent (:11/11/2016 Ari BARROW) (Ack 12:08 LTapper) (12:57 EHassan R.N.) CMP Urgent (:11/11/2016 Ari BARROW) (Ack 12:08 LTapper) (12:57 EHassan R.N.) Urine Urgent (11/11/2016 Ari BARROW) (Ack 12:08 LTapper) (12:57 EHassan R.N.) PT with INR Urgent (:11/11/2016 Ari BARROW) (Ack 12:08 LTapper) (12:57 EHassan R.N.) UA-Culture if indicated Urgent (:11/11/2016 Ari BARROW) (Ack 12:08 LTapper) (12:26 EHassan R.N.) MEDICATION ORDERS: IV FLUIDS: IV NS : initial bolus 1000 mL (1000 mL/hr), then none - (NOW) (11:59 11/11/2016 Ari BARROW) (Ack 12:26 SStone R.N.) (12:58 EHassan R.N.) Dilaudid IV 1 mg (NOW) (12:58 11/11/2016 EHassan R.N. verbal order read back to Ari BARROW) (Ack 13:00 SStone R.N.) (13:05 SStone R.N.) ORDER SHEET NOTES: [Electronically signed by Lissa Cleaning MD (12:04 11/15/2016)] [Electronically signed by Barbara Christianson R.N. (15:15 11/26/2016)] [Electronically locked/signed by Barbara Christianson R.N. (15:15 11/26/2016)]
--- NOTE | 2016-11-11 14:23 | ED NURSING NOTES ---
Clinical Report - [facility] [place] [address] 11/11/2016 11:41 Patient: GRAHAM ANDERSEN TRIAGE Triage time 11:51. Acuity: LEVEL 3. Chief Complaint: ABDOMINAL PAIN and (LLQ). --11:58 Lorraine Aceves R.N. 11:51 11/11/16. BP: 142/99. HR: 96. RR: 18. O2 saturation: 100%. Temp: 97.8 F. Pain level now: 05/16. --11:58 Lorraine Aceves R.N. Weight: 115.6 kg stated. Height/Length: 67 inches. BMI: 40. --11:57 Lorraine Aceves R.N. Medications metformin 1000- mg bid. --11:57 Lorraine Aceves R.N. Allergies Amoxicillin. --11:57 Lorraine Aceves R.N. History Arrived by private vehicle. Historian: patient and family. Accompanied by family. Primary physician (Dr. Mccord, [employer]). ( Dx with ectopic and given methotrexate on 10/31. Subsequently the pt. had a small amount of bleeding. She was seen by Dr. Mccord in . She was seen in this ER on 11/09/2014 for increasing pain and had an ultrasound. Pt. reports pain had subsided, then upon awakening this morning she had dark-red bleeding and a return of the LLQ pain. She called Dr. Mccord's office, who advised her she could wait until this afternoon to be seen in clinic or present to the ER.). She has had abdominal pain. PAST MEDICAL HX: ( PCOS). SOCIAL HX: Former smoker. No alcohol use or drug use. FALL RISK ASSESSMENT: Fall risk assessment completed. No fall risk identified. NUTRITIONAL RISK ASSESSMENT: The nutritional risk assessment revealed no deficiencies. FUNCTIONAL ASSESSMENT: Functional assessment: no impairments noted. LEARNING NEEDS ASSESSMENT: The learning needs assessment revealed no barriers. SKIN INTEGRITY ASSESSMENT: Skin integrity risk assessment completed. No skin integrity risk identified. --11:58 Lorraine Aceves R.N. Interventions ID band on patient. --11:58 Lorraine Aceves R.N. NURSING PROGRESS NOTES 12:53 11/11/2016 Site #1 started via IV in the right hand with an 20g angiocath; one attempt. Blood drawn: rainbow set. Labeled in the presence of the patient and sent to the lab. Saline lock flushed with 10 mL saline. --12:58 Carline Pro R.N. 12:53 11/11/2016 Started bag #1 1000 mL IV Fluids IV NS (Saline); bolus of 1000 mL over 1 hour(s) via site #1 via dial-a-flow. Allergies verified and confirmed 5 rights. IV patency established. IV site checked: no pain, redness, or swelling. IV flushed thoroughly pre- and post-medication administration. --12:58 Carline Pro R.N. 13:04 11/11/2016 Dilaudid (HYDROmorphone HCl PF) IVP 1 mg given over 2 minute(s) via site #1. Allergies verified, confirmed 5 rights and sedative warning given to the patient. IV patency established. IV site checked: no pain, redness, or swelling. IV flushed thoroughly pre- and post-medication administration. IVP given by RN (Pt. placed on continuous O2 monitor.). --13:05 Lorraine Aceves R.N. Patient ID band checked for patient name, birthdate and medical record number: patient confirmed. Blood samples drawn from the right hand peripheral IV site by nurse per protocol ; labeled in presence of the patient and sent to lab: rainbow set. Line flushed with post blood draw. Reassurance given. The patient is calm. Overall patient status is the same- she states feels the same. GI / : The patient reports abdominal pain. Denies nausea, diarrhea or vomiting. SKIN: Skin is warm. Skin color within normal limits. Two patient identifiers checked. Call light placed in reach. Side rails up x 1. Bed placed in lowest position. Brakes of bed on. Brakes of chair on. --13:10 Carline Pro R.N. 13:00 11/11/16. BP: 127/67 (regular adult cuff) taken on the left arm, via an automated monitor, while lying. HR: 77. RR: 18. O2 saturation: 96% on room air. Pain level now: 05/16. --13:10 Carline Pro R.N. 13:24 11/11/16. BP: 107/69. HR: 62. O2 saturation: 95%. --13:24 Lorraine Aceves R.N. ( Report given to MADDIE Lugo for lunch coverage.). --13:37 Lorraine Aceves R.N. DISPOSITION / DISCHARGE Condition at departure: improved. The goals identified in the patient's plan of care were met. No learning barriers present. Discharge instructions provided and reviewed with the patient. Reviewed medication(s) side effects, precautions, dosing and course information. Prescription(s) given to the patient. Treatments reviewed (drive straight to Dr. Mccord's office for follow up appointment at 2:30pm). Reviewed referral to an nut sheller. Patient verbalized understanding. Written instructions provided in Divehi. The patient was discharged home and accompanied by spouse. She left the Emergency Department ambulatory and via private vehicle. Spouse driving. FALL RISK ASSESSMENT: Fall risk assessment completed. No fall risk identified. --14:35 Will Graham R.N. 14:34 11/11/16. BP: 117/58. HR: 85. RR: 16. O2 saturation: 100%. Temp: 98.2 F. Pain level now: 06/16. --14:35 Will Graham R.N. Departure time: 1430 PM. --14:35 Will Graham R.N. Locked/Released at 11/26/2016 15:15 by Barbara Christianson R.N.
--- NOTE | 2016-11-11 14:23 | ED ORDER SUMMARY ---
..... Patient: GRAHAM ANDERSEN OrderSheet [facility] VisitID: [id number] [place] [address] 30y, F Registration Date/Time: 11/11/2016 ORDER SHEET Weight: 115.6 kg (stated) Allergies: Amoxicillin GENERAL ORDERS: CBC w Diff Urgent (:11/11/2016 Ari BARROW) (Ack 12:08 LTapper) (12:57 EHassan R.N.) CMP Urgent (:11/11/2016 Ari BARROW) (Ack 12:08 LTapper) (12:57 EHassan R.N.) Urine Urgent (11/11/2016 Ari BARROW) (Ack 12:08 LTapper) (12:57 EHassan R.N.) PT with INR Urgent (:11/11/2016 Ari BARROW) (Ack 12:08 LTapper) (12:57 EHassan R.N.) UA-Culture if indicated Urgent (:11/11/2016 Ari BARROW) (Ack 12:08 LTapper) (12:26 EHassan R.N.) MEDICATION ORDERS: IV FLUIDS: IV NS : initial bolus 1000 mL (1000 mL/hr), then none - (NOW) (11:59 11/11/2016 Ari BARROW) (Ack 12:26 SStone R.N.) (12:58 EHassan R.N.) Dilaudid IV 1 mg (NOW) (12:58 11/11/2016 EHassan R.N. verbal order read back to Ari BARROW) (Ack 13:00 SStone R.N.) (13:05 SStone R.N.) ORDER SHEET NOTES: [Electronically signed by Lissa Cleaning MD (12:04 11/15/2016)] [Electronically signed by Barbara Christianson R.N. (15:15 11/26/2016)] [Electronically locked/signed by Barbara Christianson R.N. (15:15 11/26/2016)]
--- NOTE | 2016-11-11 14:23 | ED CLINICAL REPORT ---
Clinical Report - Physicians/[facility] Levels [facility] [address] [place] [address] 11/11/2016 11:41 Patient: GRAHAM ANDERSEN Time Seen: 11:59. Arrived- By private vehicle. Historian- patient. HISTORY OF PRESENT ILLNESS Chief Complaint: ABDOMINAL PAIN. At its maximum, severity described as moderate. When seen in the E.D., severity described as moderate. Modifying factors. Not worsened by anything. Not relieved by anything. It is described as "pain" and sharp and it is described as located in the left pelvis. This started today and is still present but is improving. No nausea, loss of appetite, vomiting or diarrhea. (Pt states that this morning, she had a sudden, strong cramp, and escalation of her bleeding. She states that the pain and bleeding have both subsided now.). Similar symptoms previously: Recent medical care: The patient was seen recently at this facility and another facility. ( PT has been followed for a resolving ectopic , treated with methotrexate, for the past week and a half. She has been seen twice here, and twice by Dr. Mccord. Last US, about 2 days ago, showed continued resolution.). REVIEW OF SYSTEMS No constipation, black stools, hematemesis, difficulty with urination or pain with urination. No urinary frequency, bloody stools, fever, headache or sore throat. No blurred vision, chest pain, difficulty breathing, cough or joint pain. No skin rash, chills or back pain. The patient has had abnormal bleeding. Currently : resolving ectopic, on methotrexate recent sonogram showed ectopic . All systems otherwise negative, except as recorded above. PAST HISTORY Problems: Obesity. Diabetes Mellitus. Ectopic . Additional Surgeries: . Eye surgery . LEEP procedure. Medications: metformin 1000- mg bid. Allergies: Amoxicillin. SOCIAL HISTORY Never smoker. No alcohol use or drug use. ADDITIONAL NOTES The nursing notes have been reviewed. PHYSICAL EXAM Vital Signs: 11/11/2016 11:51 BP: 142/99. HR: 96. RR: 18. O2 saturation: 100%. Temp: 97.8 F. Pain level now: 7/10. Have been reviewed. Appearance: Alert. Oriented X3. No acute distress. Eyes: Pupils equal, round and reactive to light. Eyes normal inspection. ENT: Nose normal. Neck: Normal inspection. CVS: Normal heart rate and rhythm. Heart sounds normal. Pulses normal. Respiratory: No respiratory distress. Breath sounds normal. Abdomen: Soft and nontender. Moderately obese. Back: Normal inspection. No CVA tenderness. Skin: Skin warm and dry. Normal skin color. No rash. Normal skin turgor. Extremities: Extremities exhibit normal ROM. No lower extremity edema. Neuro: Oriented X 3. No motor deficit. No sensory deficit. LABS, X-RAYS, AND EKG Laboratory Tests: UA-Culture if indicated: (XENIA: 11/11/2016 10:50) ( [facility] 11/11/2016 12:22) Final results Test Result Flag Units (Reference) URINE COLOR YELLOW URINE APPEARANCE CLEAR URINE GLUCOSE NEGATIVE (NEGATIVE) URINE BILIRUBIN NEGATIVE (NEGATIVE) URINE KETONE NEGATIVE (NEGATIVE) URINE SPECIFIC GRAVITY 1.015 (1.010-1.030) URINE PH 5.5 (5.0-8.0) URINE PROTEIN NEGATIVE (NEGATIVE) URINE UROBILINOGEN 0.2 EU/dL (0.2-1.0) URINE NITRITE NEGATIVE (NEGATIVE) URINE BLOOD 1+ (NEGATIVE) URINE LEUK ESTERASE NEGATIVE (NEGATIVE) URINE RBC 1-3 rbc/hpf (0-1) URINE WBC 0-1 wbc/hpf (0-1) URINE EPITHELIAL CELLS 0-1 EPI/hpf (0-5) URINE BACTERIA NONE SEEN (NONE SEEN) URINE COMMENT CULT NOT INDICATED URINE CULTURES ARE SET-UP BASED ON THE FOLLOWING CRITERIA:POSITIVE NITRITEPOSITIVE LEUKOCYTE ESTERASEGREATER THAN 10 WHITE BLOOD CELLSMODERATE (2+) OR GREATER BACTERIA Urine: (XENIA: 11/11/2016 10:50) ( [facility] 11/11/2016 12:14) Final results Test Result Flag Units (Reference) URINE NEGATIVE CBC w Diff: (XENIA: 11/11/2016 12:50) ( [facility] 11/11/2016 13:07) Final results Test Result Flag Units (Reference) WHITE BLOOD COUNT 10.2 K/uL (4.5-11.5) RED BLOOD COUNT 4.53 M/uL (4.00-5.20) HEMOGLOBIN 13.5 gm/dL (12.0-16.0) HEMATOCRIT 41.2 % (36.0-46.0) MEAN CELL VOLUME 91 fL (80-100) MEAN CORPUSCULAR HGB 30 pg (26-34) MEAN CORPUSCULAR HGB CONC 33 g/dL (31-37) RED CELL DISTRIBUTION WIDTH 13.4 % (11.6-14.8) PLATELET COUNT 232 K/uL (150-400) NEUTROPHIL % 81.7 H % (50-75) LYMPH % 11.4 L % (25-40) MONO % 6.3 % (3-14) EOSINOPHIL % 0.4 % (0-4) BASOPHIL % 0.2 % (0-2) PT with INR: (XENIA: 11/11/2016 12:50) ( [facility] 11/11/2016 13:10) Final results Test Result Flag Units (Reference) INR 1.1 (0.8-1.2) Low Intensity Therapy: INR 1.5-2.0 PT range 18.5-23.1Mod.Intensity Therapy: INR 2.0-3.0 PT range 23.1-31.5High Intensity Therapy: INR 2.5-3.5 PT range 27.4-35.5High Intensity Therapy 2: INR 3.0-4.0 PT range 31.5-39.3 . Pulse Oximetry: 11/11/2016 11:51 O2 saturation: 100%. (FIO2 - room air). Interpretation: normal. PROGRESS AND PROCEDURES Course of Care: Pt declined vaginal exam, stating her bleeding was better. I felt that the best plan, given pt's stability, was to keep her appointment with Dr. Mccord for today at 1430. I discussed this with him, and he agreed. I did not repeat an US, given that bleeding had nearly resolved, and that pt just had one 2 days ago, which showed improvement. Pt had been given a single mg of Dilaudid and a liter of NS in the ED, and was feeling better. Patient counseled in person regarding the patient's stable condition, test results, diagnosis and need for follow-up. Concerns were addressed. Old medical records reviewed. Disposition: Discharged. Condition: stable and improved. CLINICAL IMPRESSION Left tubal ectopic . (on methotrexate). INSTRUCTIONS Drink plenty of fluids. Warnings: Further evaluation is necessary. SEDATIVE MEDICATION: You were given sedative medication during your visit. Do not drive or operate dangerous machinery for 6 hours. GENERAL WARNINGS: Return or contact your physician immediately if your condition worsens or changes unexpectedly, if not improving as expected, or if other problems arise. Prescription Medications: Hydrocodone/APAP 5mg / 325mg: take 1-2 orally every 6 hours as needed for pain. Dispense fifteen (15). No refill. Understanding of the discharge instructions verbalized by patient. Follow-up with: Luis Felipe Mccord MD, Obstetrics/Gynecology, , [facility], [address] [place] [address] Follow up today. Reason for referral: Please go straight to Dr. Mccord's clinic to be seen at 2:30-gilberto. (Electronically signed by Lissa Cleaning MD 11/15/2016 12:04)
--- NOTE | 2016-11-11 14:23 | ED CLINICAL REPORT ---
Clinical Report - Physicians/Mid Levels Formerly [facility] [address] [place] [address] 11/11/2016 11:41 Patient: GRAHAM ANDERSEN Time Seen: 11:59. Arrived- By private vehicle. Historian- patient. HISTORY OF PRESENT ILLNESS Chief Complaint: ABDOMINAL PAIN. At its maximum, severity described as moderate. When seen in the E.D., severity described as moderate. Modifying factors. Not worsened by anything. Not relieved by anything. It is described as "pain" and sharp and it is described as located in the left pelvis. This started today and is still present but is improving. No nausea, loss of appetite, vomiting or diarrhea. (Pt states that this morning, she had a sudden, strong cramp, and escalation of her bleeding. She states that the pain and bleeding have both subsided now.). Similar symptoms previously: Recent medical care: The patient was seen recently at this facility and another facility. ( PT has been followed for a resolving ectopic , treated with methotrexate, for the past week and a half. She has been seen twice here, and twice by Dr. Mccord. Last US, about 2 days ago, showed continued resolution.). REVIEW OF SYSTEMS No constipation, black stools, hematemesis, difficulty with urination or pain with urination. No urinary frequency, bloody stools, fever, headache or sore throat. No blurred vision, chest pain, difficulty breathing, cough or joint pain. No skin rash, chills or back pain. The patient has had abnormal bleeding. Currently : resolving ectopic, on methotrexate recent sonogram showed ectopic . All systems otherwise negative, except as recorded above. PAST HISTORY Problems: Obesity. Diabetes Mellitus. Ectopic . Additional Surgeries: . Eye surgery . LEEP procedure. Medications: metformin 1000- mg bid. Allergies: Amoxicillin. SOCIAL HISTORY Never smoker. No alcohol use or drug use. ADDITIONAL NOTES The nursing notes have been reviewed. PHYSICAL EXAM Vital Signs: 11/11/2016 11:51 BP: 142/99. HR: 96. RR: 18. O2 saturation: 100%. Temp: 97.8 F. Pain level now: 7/10. Have been reviewed. Appearance: Alert. Oriented X3. No acute distress. Eyes: Pupils equal, round and reactive to light. Eyes normal inspection. ENT: Nose normal. Neck: Normal inspection. CVS: Normal heart rate and rhythm. Heart sounds normal. Pulses normal. Respiratory: No respiratory distress. Breath sounds normal. Abdomen: Soft and nontender. Moderately obese. Back: Normal inspection. No CVA tenderness. Skin: Skin warm and dry. Normal skin color. No rash. Normal skin turgor. Extremities: Extremities exhibit normal ROM. No lower extremity edema. Neuro: Oriented X 3. No motor deficit. No sensory deficit. LABS, X-RAYS, AND EKG Laboratory Tests: UA-Culture if indicated: (XENIA: 11/11/2016 10:50) ( [facility] [place] 12[place]22) Final results Test Result Flag Units (Reference) URINE COLOR YELLOW URINE APPEARANCE CLEAR URINE GLUCOSE NEGATIVE (NEGATIVE) URINE BILIRUBIN NEGATIVE (NEGATIVE) URINE KETONE NEGATIVE (NEGATIVE) URINE SPECIFIC GRAVITY 1.015 (1.010-1.030) URINE PH 5.5 (5.0-8.0) URINE PROTEIN NEGATIVE (NEGATIVE) URINE UROBILINOGEN 0.2 EU/dL (0.2-1.0) URINE NITRITE NEGATIVE (NEGATIVE) URINE BLOOD 1+ (NEGATIVE) URINE LEUK ESTERASE NEGATIVE (NEGATIVE) URINE RBC 1-3 rbc/hpf (0-1) URINE WBC 0-1 wbc/hpf (0-1) URINE EPITHELIAL CELLS 0-1 EPI/hpf (0-5) URINE BACTERIA NONE SEEN (NONE SEEN) URINE COMMENT CULT NOT INDICATED URINE CULTURES ARE SET-UP BASED ON THE FOLLOWING CRITERIA:POSITIVE NITRITEPOSITIVE LEUKOCYTE ESTERASEGREATER THAN 10 WHITE BLOOD CELLSMODERATE (2+) OR GREATER BACTERIA Urine: (XENIA: 11/11/2016 10:50) ( [facility] [place]/11[facility] 12:14) Final results Test Result Flag Units (Reference) URINE NEGATIVE CBC w Diff: (XENIA: 11/11/2016 12:50) ( [facility] [place] 11/11/2016 13:07) Final results Test Result Flag Units (Reference) WHITE BLOOD COUNT 10.2 K/uL (4.5-11.5) RED BLOOD COUNT 4.53 M/uL (4.00-5.20) HEMOGLOBIN 13.5 gm/dL (12.0-16.0) HEMATOCRIT 41.2 % (36.0-46.0) MEAN CELL VOLUME 91 fL (80-100) MEAN CORPUSCULAR HGB 30 pg (26-34) MEAN CORPUSCULAR HGB CONC 33 g/dL (31-37) RED CELL DISTRIBUTION WIDTH 13.4 % (11.6-14.8) PLATELET COUNT 232 K/uL (150-400) NEUTROPHIL % 81.7 H % (50-75) LYMPH % 11.4 L % (25-40) MONO % 6.3 % (3-14) EOSINOPHIL % 0.4 % (0-4) BASOPHIL % 0.2 % (0-2) PT with INR: (XENIA: 11/11/2016 12:50) ( [facility] 11/11/2016 13:10) Final results Test Result Flag Units (Reference) INR 1.1 (0.8-1.2) Low Intensity Therapy: INR 1.5-2.0 PT range 18.5-23.1Mod.Intensity Therapy: INR 2.0-3.0 PT range 23.1-31.5High Intensity Therapy: INR 2.5-3.5 PT range 27.4-35.5High Intensity Therapy 2: INR 3.0-4.0 PT range 31.5-39.3 . Pulse Oximetry: 11/11/2016 11:51 O2 saturation: 100%. (FIO2 - room air). Interpretation: normal. PROGRESS AND PROCEDURES Course of Care: Pt declined vaginal exam, stating her bleeding was better. I felt that the best plan, given pt's stability, was to keep her appointment with Dr. Mccord for today at 1430. I discussed this with him, and he agreed. I did not repeat an US, given that bleeding had nearly resolved, and that pt just had one 2 days ago, which showed improvement. Pt had been given a single mg of Dilaudid and a liter of NS in the ED, and was feeling better. Patient counseled in person regarding the patient's stable condition, test results, diagnosis and need for follow-up. Concerns were addressed. Old medical records reviewed. Disposition: Discharged. Condition: stable and improved. CLINICAL IMPRESSION Left tubal ectopic . (on methotrexate). INSTRUCTIONS Drink plenty of fluids. Warnings: Further evaluation is necessary. SEDATIVE MEDICATION: You were given sedative medication during your visit. Do not drive or operate dangerous machinery for 6 hours. GENERAL WARNINGS: Return or contact your physician immediately if your condition worsens or changes unexpectedly, if not improving as expected, or if other problems arise. Prescription Medications: Hydrocodone/APAP 5mg / 325mg: take 1-2 orally every 6 hours as needed for pain. Dispense fifteen (15). No refill. Understanding of the discharge instructions verbalized by patient. Follow-up with: Luis Felipe Mccord MD, Obstetrics/Gynecology, , [facility], [address] [place] [address] Follow up today. Reason for referral: Please go straight to Dr. Mccord's clinic to be seen at 2:30-gilberto. (Electronically signed by Lissa Cleaning MD 11/15/2016 12:04)
--- NOTE | 2016-11-26 15:16 | ED MAR SUMMARY ---
..... Medication Administration Record [facility] [address] [place] [address] Patient: GRAHAM ANDERSEN Visit ID: [id number] 30y, F Weight: 115.6 kg Height/Length: 67 in BMI: 40 ALLERGIES: Amoxicillin Start 12:53 11/11/2016 Carline Pro R.N. Medication Administered: IV NS (SALINE), Dose: IV Fluids, Bolus: 1000 mL over 1 hour(s), Dispensed: 1000 mL bag, Site: #1 right hand. Medication Ordered: IV NS : initial bolus 1000 mL (1000 mL/hr), then none - (NOW). Given 13:04 11/11/2016 Lorraine Aceves R.N. Medication Administered: DILAUDID [IVP] (HYDROMORPHONE HCL PF), Dose: 1 mg IVP over 2 minute(s), Site: #1 right hand. Medication Ordered: Dilaudid IV 1 mg (NOW).
--- NOTE | 2016-11-26 15:16 | ED DISCHARGE INSTRUCTIONS ---
Patient: GRAHAM ANDERSEN General Instructions [facility] VisitID: [id number] [place] [address] 30y, F Registration Date/Time: 11/11/2016 Left tubal ectopic . (on methotrexate). INSTRUCTIONS Drink plenty of fluids. Warnings: Further evaluation is necessary. SEDATIVE MEDICATION: You were given sedative medication during your visit. Do not drive or operate dangerous machinery for 6 hours. GENERAL WARNINGS: Return or contact your physician immediately if your condition worsens or changes unexpectedly, if not improving as expected, or if other problems arise. Prescription Medications: Hydrocodone/APAP 5mg / 325mg: take 1-2 orally every 6 hours as needed for pain. Dispense fifteen (15). No refill. Understanding of the discharge instructions verbalized by patient. Follow-up with: Luis Felipe Mccord MD, Obstetrics/Gynecology, , [facility], [address] [place] [address] Follow up today. Reason for referral: Please go straight to Dr. Mccord's clinic to be seen at 2:30-gilberto. (Electronically signed by Lissa Cleaning MD 11/15/2016 12:04)
--- NOTE | 2016-11-26 15:16 | ED MED RECONCILIATION SUMMARY ---
Patient: GRAHAM ANDERSEN Medication Reconciliation Report [facility] VisitID: [id number] [address] [place] [address] 30y, F Registration Date/Time: 11/11/2016 Weight: 115.6 kg Height/Length: 67 in. BMI: 40.0 ALLERGIES: Amoxicillin The patient's Home Medications are listed below: THE FOLLOWING MEDICATIONS NEED TO BE RECONCILED: metformin 1000- mg bid The source(s) of the original Home Medication information: Not obtained. The following Medications were given to the patient in the Emergency Department: IV NS IV Fluids bolus 1000 mL over 1 hour(s), administered: 11/11/2016 12:53:00 PM Dilaudid [IVP] IVP 1 mg, administered: 11/11/2016 1:04:00 PM The following Medications were prescribed to the patient: Hydrocodone/APAP 5mg / 325mg: take 1-2 orally every 6 hours as needed for pain. Dispense fifteen (15). No refill. -- Lissa Cleaning MD
--- NOTE | 2016-11-26 15:16 | ED MAR SUMMARY ---
..... Medication Administration Record [facility] [address] [place] [address] Patient: GRAHAM ANDERSEN Visit ID: [id number] 30y, F Weight: 115.6 kg Height/Length: 67 in BMI: 40 ALLERGIES: Amoxicillin Start 12:53 11/11/2016 Carline Pro R.N. Medication Administered: IV NS (SALINE), Dose: IV Fluids, Bolus: 1000 mL over 1 hour(s), Dispensed: 1000 mL bag, Site: #1 right hand. Medication Ordered: IV NS : initial bolus 1000 mL (1000 mL/hr), then none - (NOW). Given 13:04 11/11/2016 Lorraine Aceves R.N. Medication Administered: DILAUDID [IVP] (HYDROMORPHONE HCL PF), Dose: 1 mg IVP over 2 minute(s), Site: #1 right hand. Medication Ordered: Dilaudid IV 1 mg (NOW).
--- NOTE | 2016-11-26 15:16 | ED MED RECONCILIATION SUMMARY ---
Patient: GRAHAM ANDERSEN Medication Reconciliation Report [facility] VisitID: [id number] [address] [place] [address] 30y, F Registration Date/Time: 11/11/2016 Weight: 115.6 kg Height/Length: 67 in. BMI: 40.0 ALLERGIES: Amoxicillin The patient's Home Medications are listed below: THE FOLLOWING MEDICATIONS NEED TO BE RECONCILED: metformin 1000- mg bid The source(s) of the original Home Medication information: Not obtained. The following Medications were given to the patient in the Emergency Department: IV NS IV Fluids bolus 1000 mL over 1 hour(s), administered: 11/11/2016 12:53:00 PM Dilaudid [IVP] IVP 1 mg, administered: 11/11/2016 1:04:00 PM The following Medications were prescribed to the patient: Hydrocodone/APAP 5mg / 325mg: take 1-2 orally every 6 hours as needed for pain. Dispense fifteen (15). No refill. -- Lissa Cleaning MD
--- NOTE | 2016-11-26 15:16 | ED DISCHARGE INSTRUCTIONS ---
Patient: GRAHAM ANDERSEN General Instructions [facility] VisitID: [id number] [place] [address] 30y, F Registration Date/Time: 11/11/2016 Left tubal ectopic . (on methotrexate). INSTRUCTIONS Drink plenty of fluids. Warnings: Further evaluation is necessary. SEDATIVE MEDICATION: You were given sedative medication during your visit. Do not drive or operate dangerous machinery for 6 hours. GENERAL WARNINGS: Return or contact your physician immediately if your condition worsens or changes unexpectedly, if not improving as expected, or if other problems arise. Prescription Medications: Hydrocodone/APAP 5mg / 325mg: take 1-2 orally every 6 hours as needed for pain. Dispense fifteen (15). No refill. Understanding of the discharge instructions verbalized by patient. Follow-up with: Luis Felipe Mccord MD, Obstetrics/Gynecology, , [facility], [address] [place] [address] Follow up today. Reason for referral: Please go straight to Dr. Mccord's clinic to be seen at 2:30-gilberto. (Electronically signed by Lissa Cleaning MD 11/15/2016 12:04)
== END 2016-11-11 14:37 | disposition home or self-care (01) ==
LOC: ED SRH 11:39
DX: O00.10 Tubal pregnancy without intrauterine pregnancy (principal); O24.919 Unspecified diabetes mellitus in pregnancy, unspecified trimester; E11.9 Type 2 diabetes mellitus without complications; Z79.84 Long term (current) use of oral hypoglycemic drugs; Z88.0 Allergy status to penicillin
CPT/HCPCS: 90004; 90100; 93070; 94060; 95059